=== PATIENT | male | born 1955 | race Caucasian/White ===

== ENCOUNTER 2022-03-25 12:57 | Inpatient (IN) | payer BC ==
[~2022-03-25 12:57] MED LIST: Iopamidol-370 76% 500 ML 1 ML ONE
[2022-03-25 13:34] LABS: #Eosinphils 0.3 thou/uL (0.0-0.7); #Lymphocytes 2.2 thou/uL (1.20-3.40); #Monocytes 1.1 thou/uL (0.11-0.59); #Neutrophils 13.3 thou/uL (1.40-6.50); %Basophils 0.2 % (0.0-1.0); %Eosinophils 1.9 % (0.0-10.0); %Lymphocytes 12.8 % (21.0-51.0); %Monocytes 6.7 % (0.0-10.0); %Neutrophils 78.5 % (42.0-75.0); Mean Corpuscular Hemoglobin 32.1 pg (27.0-31.0); Mean Corpuscular Volume 97.4 fl (78.0-98.0); Mean Platelet Volume 7.6 fL (7.4-10.4); Platelet Count 244 10x3/uL (130-400); RBC Distribution Width 11.6 % (11.5-14.5); Red Blood Cell (RBC) Count 4.67 mill/uL (4.70-6.10); White Blood Cell (WBC) Count 16.9 10x3/uL (4.8-10.8)
[2022-03-25] MEDS ORDERED: Ondansetron PF 4 MG/2 ML Vial ONE (13:47)
[2022-03-25] MEDS ORDERED: FENTANYL 50 MCG/ML 1 ML VIAL ONE (13:47)
[2022-03-25 13:53] LABS: ALT (SGPT) 22 U/L (8-55); AST (SGOT) 31 U/L (5-34); Albumin 4.2 g/dL (3.4-4.8); Alkaline Phosphatase 52 U/L (40-110); Anion Gap 15 mmol/L (10-20); BUN (Urea Nitrogen) 18 mg/dL (8.4-25.7); Bilirubin, Total 0.9 mg/dL (0.2-1.2); Calc. Creatinine Clearance 0 mL/min (70-130); Calcium 8.5 mg/dL (7.8-10.44); Carbon Dioxide 23 mmol/L (23-31); Chloride 103 mmol/L (98-107); Estimated GFR 65; Globulin 2.5 g/dL (2.4-3.5); Glucose 123 mg/dL (80-115); Potassium 3.5 mmol/L (3.5-5.1); Protein, Total 6.7 g/dL (5.8-8.1); Sodium 137 mmol/L (136-145)
[2022-03-25] MEDS ORDERED: Lidocaine 1% w/Epinephrine 1:100K 20 ML VIAL ONE (14:18)
[2022-03-25 14:39] LABS: INR-International Normal Ratio 1.4; PTT 38.2 sec (22.9-36.1); Prothrombin Time 17.5 sec (12.0-14.7)
[2022-03-25] MEDS ORDERED: Aspirin Chewable 81 MG TAB ONE (15:45)
[2022-03-25] MEDS ORDERED: Morphine 4 MG/ML VIAL ONE (16:38)
[2022-03-25] MEDS ORDERED: Dextrose 5% in Water 1,000 ML IV PRN (16:43)
[2022-03-25] MEDS ORDERED: Dextrose 50% Abboject 50 ML SYRINGE SLOW IVP PRN (16:43)
[2022-03-25] MEDS ORDERED: Morphine 4 MG/ML VIAL SLOW IVP PRN (16:43)
[2022-03-25] MEDS ORDERED: TETANUS, DIPHTHERIA TOX,ADULT (TDVAX) 0.5 ML VIAL IM ONE (16:43)
[2022-03-25] MEDS ORDERED: hydrALAZINE 20 MG/ML VIAL SLOW IVP PRN (16:43)
[2022-03-25] MEDS ORDERED: Ondansetron PF 4 MG/2 ML Vial IVP PRN (16:43)
[2022-03-25] MEDS ORDERED: Sodium Chloride 0.9% 1,000 ML IV SCH (16:45)
[2022-03-25 18:18] VITALS: BMI 30.9
[2022-03-25] MEDS ORDERED: CEFAZOLIN 2 GM in Sodium Chloride 0.9% 100 ML IVPB SCH (19:00)
[2022-03-25] MEDS: Famotidine/PF 20 mg/2ml Vial SLOW IVP SCH (20:32)
[2022-03-25] MEDS: Acetaminophen 500 MG TAB PO SCH (20:33)
[2022-03-25] MEDS: traMADol HCl 50 MG TAB PO SCH (20:33)
[2022-03-25] MEDS: Gabapentin 300 MG CAP PO SCH (20:34)
[2022-03-25] MEDS: Cyclobenzaprine 10 MG TAB PO PRN (20:34)
[2022-03-25] MEDS: Senokot S 8.6-50 MG TAB PO SCH (20:35)
[2022-03-26] MEDS: Acetaminophen 500 MG TAB PO SCH ×3 (03:18→13:08)
[2022-03-26] MEDS: traMADol HCl 50 MG TAB PO SCH ×3 (03:21→13:08)
[2022-03-26 05:26] LABS: SARS-CoV-2 NAA Rapid Test Not Detected (NotDetected)
[2022-03-26 06:45] LABS: #Lymphocytes 1.2 thou/uL (1.20-3.40); #Monocytes 1.3 thou/uL (0.11-0.59); #Neutrophils 7.2 thou/uL (1.40-6.50); %Basophils 0.2 % (0.0-1.0); %Eosinophils 0.3 % (0.0-10.0); %Lymphocytes 12.6 % (21.0-51.0); %Monocytes 13.1 % (0.0-10.0); %Neutrophils 73.8 % (42.0-75.0); Hemoglobin 14.4 g/dL (14.0-18.0); Mean Corpuscular HGB CONC 34.5 g/dL (32.0-36.0); Mean Corpuscular Hemoglobin 33.9 pg (27.0-31.0); Mean Corpuscular Volume 98.1 fl (78.0-98.0); Mean Platelet Volume 7.4 fL (7.4-10.4); Platelet Count 188 10x3/uL (130-400); RBC Distribution Width 11.5 % (11.5-14.5); Red Blood Cell (RBC) Count 4.24 mill/uL (4.70-6.10); White Blood Cell (WBC) Count 9.8 10x3/uL (4.8-10.8)
[2022-03-26 07:02] LABS: Anion Gap 11 mmol/L (10-20); BUN (Urea Nitrogen) 11 mg/dL (8.4-25.7); Calc. Creatinine Clearance 130 mL/min (70-130); Calcium 7.9 mg/dL (7.8-10.44); Carbon Dioxide 23 mmol/L (23-31); Chloride 103 mmol/L (98-107); Estimated GFR 96; Glucose 101 mg/dL (80-115); Magnesium 1.9 mg/dL (1.6-2.6); Phosphorus 3.1 mg/dL (2.3-4.7); Potassium 3.9 mmol/L (3.5-5.1); Sodium 133 mmol/L (136-145)
[2022-03-26] MEDS: Senokot S 8.6-50 MG TAB PO SCH (08:13)
[2022-03-26] MEDS: Famotidine/PF 20 mg/2ml Vial SLOW IVP SCH (08:14)
[2022-03-26] MEDS: Gabapentin 300 MG CAP PO SCH (08:15)
[2022-03-26] MEDS ORDERED: Polyethylene Glycol 3350 17 GM Packet PO SCH (09:00)
[2022-03-26] MEDS ORDERED: Aspirin 325 mg Enteric Coated Tablet PO SCH (09:00)
[2022-03-26] MEDS: Cyclobenzaprine 10 MG TAB PO PRN (10:03)
[2022-03-26 11:23] VITALS: BP 124/68; TEMP 97.8
== END 2022-03-26 14:00 | disposition home or self-care (01) | DRG 552 ==
LOC: ERS 12:57 → SURG B 15:54
PROVIDERS: ADMIT Surgery; ATTEND Surgery
DX: S12.500A Unspecified displaced fracture of sixth cervical vertebra, initial encounter for closed fracture (principal); S22.019A Unspecified fracture of first thoracic vertebra, initial encounter for closed fracture; S22.31XA Fracture of one rib, right side, initial encounter for closed fracture; S12.600A Unspecified displaced fracture of seventh cervical vertebra, initial encounter for closed fracture; S12.110A Anterior displaced Type II dens fracture, initial encounter for closed fracture; Z20.822 Contact with and (suspected) exposure to COVID-19; W11.XXXA Fall on and from ladder, initial encounter; S01.01XA Laceration without foreign body of scalp, initial encounter; Z90.49 Acquired absence of other specified parts of digestive tract
CPT/HCPCS: 36415; 70450; 70498; 71260; 72125; 74177; 80048; 80053; 83735; 84100; 85025; 85610; 85730; 93005; J2270; J2405; J3010; J3490; J7050; Q9967; S0028; U0002